=== PATIENT | female | born 1975 | race Caucasian/White ===

== ENCOUNTER 2017-07-08 21:22 | Emergency (ER) | payer OTHER ==
[~2017-07-08] VITALS: Ht 162.6 cm; Wt 113.4 kg
[~2017-07-08 21:22] MED LIST: BACTRIM DS TAB1 EACH PO; IBUPROFEN 800800 M1 PO; NOHOMEMEDICATIONS; NORCO 5-325 TA1 EACH PO; ROBAXIN500 MG PO; TRAMADOL 50 MG50 MG PO; ZOFRAN ODT4 MG PO
[2017-07-08] MEDS ORDERED: CARISOPRODOL 3350 MG PO (21:32)
[2017-07-08] MEDS ORDERED: XANAX 0.5 MG0.5 MG PO (21:32)
[2017-07-08 22:14] LABS: ABSOLUTE EOSINOPHILS 0.1 thou/uL (0.0-0.7); ABSOLUTE LYMPHOCYTES 1.9 thou/uL (0.8-5.3); ABSOLUTE MONOCYTES 0.4 thou/uL (0.0-1.2); ABSOLUTE NEUTROPHILS 3.2 thou/uL (1.6-8.1); BASOPHILS 0.8 %; EOSINOPHILS 2.5 %; HEMATOCRIT 32.1 % (37.0-47.0); HEMOGLOBIN 10.4 gm/dL (12.0-15.0); LYMPHOCYTES 33.5 %; MCH 26.3 pg (26.0-34.0); MCHC 32.3 g/dL (28.0-37.0); MCV 81.6 fL (80.0-100.0); MONOCYTES 6.9 %; MPV 7.1 fl. (7.2-11.1); NUCLEATED RBCS 0 /100WBC; PLATELET COUNT* 297 thou/uL (150-400); POLYS 56.3 %; RBC 3.94 mil/uL (4.20-5.00); RDW-CV 16.6 % (10.5-14.5); WBC 5.7 thou/uL (4.0-11.0)
[2017-07-08 22:21] LABS: URINE BLOOD 2+ (Negative); URINE CLARITY CLEAR; URINE COLOR YELLOW; URINE GLUCOSE-RANDOM NEGATIVE (Negative); URINE KETONES NEGATIVE (Negative); URINE LEUKOCYTES-REFLEX NEGATIVE (Negative); URINE NITRITE-REFLEX NEGATIVE (Negative); URINE PROTEIN NEGATIVE (Negative); URINE SPECIFIC GRAVITY >= 1.030 (1.005-1.030); URINE UROBILINOGEN 0.2 E.U./dl (0.2-1.0)
[2017-07-08 22:23] LABS: ICTOTEST (BILI CONFIRMATORY) Positive (Negative); URINE BILIRUBIN 1+ (Negative)
[2017-07-08 22:23] LABS: ANION GAP 5 mmol/L (7-16); BUN 16 mg/dL (7-18); CALCIUM 8.1 mg/dL (8.5-10.1); CHLORIDE 105 mmol/L (98-107); CO2 31 mmol/L (21-32); CREATININE 0.9 mg/dL (0.6-1.3); GLUCOSE 107 mg/dL (70-99); POTASSIUM 4.2 mmol/L (3.5-5.1); SODIUM 141 mmol/L (136-145)
[2017-07-08 22:32] LABS: ALBUMIN 2.8 g/dL (3.4-5.0); ALKALINE PHOSPHATASE 107 U/L (46-116); LIPASE 79 U/L (73-393); NT-PRO BRAIN NAT PEPTIDE 285 pg/mL (<300); SGOT 64 U/L (15-37); SGPT 47 U/L (30-65); TOTAL BILIRUBIN 0.1 mg/dL (<0.1-1.0); TOTAL PROTEIN 6.5 g/dL (6.4-8.2); TROPONIN-I LEVEL <0.06 ng/mL (<0.06)
[2017-07-08 22:36] LABS: AMP/METHAMP Negative (Negative); BARBITURATES Negative (Negative); BENZODIAZEPINES POSITIVE (Negative); COCAINE Negative (Negative); METHADONE Negative (Negative); OPIATES POSITIVE (Negative); PCP Negative (Negative); THC Negative (Negative)
[2017-07-09] MEDS ORDERED: PEPCID20 MG PO (00:06)
[2017-07-09] MEDS ORDERED: OMEPRAZOLE 20 M20 MG PO (00:06)
[2017-07-09 00:13] VITALS: BP 135/90
--- NOTE | 2017-07-09 11:49 | EKG ---
[place] [address] ELECTROCARDIOGRAM REPORT Name: DOMINGA MARTIN Room: [facility]#: [id number] Admission: 07/08/17 Attend Phys: Discharge: 07/09/17 Date of : 71 Report #: [id number] THIS REPORT FOR: //name// [facility] ED Test Date: 2017-07-08 Test Time: 22:02:15 Pat Name: DOMINGA MARTIN Department: Room: Gender: F Brand Sales Manager: MIRANDA Booker : 1975 Requested By: Shagufta Goss Order Number: [id number] MD: Carrington Hull Measurements Intervals [place] Rate: 92 P: 66 [place]: 166 QRS: 29 QRSD: 101 T: -7 QT: 365 QTc: 452 Interpretive Statements Sinus rhythm Left atrial enlargement Low voltage, precordial leads RSR' in V1 or V2, right VCD or RVH Borderline T abnormalities, anterior leads No previous ECG available for comparison Electronically Signed On 07-09-2017 11:49:47 DIRECTOR CASE MANAGEMENT by Carrington Hull [email or web address] <ELECTRONICALLY SIGNED> By: Carrington Hull MD, [facility] 07/09/17 1149 01 01 Carrington Hull MD, [facility] /EPI
== END 2017-07-09 00:13 | disposition home or self-care (01) ==
LOC: M.ERS 21:22
PROVIDERS: Physician Assistant
DX: R07.9 Chest pain, unspecified (principal); D64.9 Anemia, unspecified; Z98.890 Other specified postprocedural states; Z88.1 Allergy status to other antibiotic agents

== ENCOUNTER 2019-05-12 11:40 | Emergency (ER) | payer OTHER ==
[~2019-05-12] VITALS: Ht 162.6 cm; Wt 122.5 kg
[~2019-05-12 11:40] MED LIST changes: +CARISOPRODOL 3350 MG PO; +OMEPRAZOLE 20 M20 MG PO; +PEPCID20 MG PO; +XANAX 0.5 MG0.5 MG PO
[2019-05-12] MEDS ORDERED: OMEPRAZOLE 20 M20 M1 PO (11:53)
[2019-05-12 12:00] LABS: ABSOLUTE EOSINOPHILS 0.1 thou/uL (0.0-0.7); ABSOLUTE LYMPHOCYTES 2.5 thou/uL (0.8-5.3); ABSOLUTE MONOCYTES 0.5 thou/uL (0.0-1.2); BASOPHILS 0.7 %; EOSINOPHILS 1.9 %; HEMATOCRIT 34.2 % (37.0-47.0); HEMOGLOBIN 11.1 gm/dL (12.0-15.0); LYMPHOCYTES 34.4 %; MCH 25.6 pg (26.0-34.0); MCHC 32.4 g/dL (28.0-37.0); MCV 78.9 fL (80.0-100.0); MONOCYTES 7.3 %; MPV 7.3 fl. (7.2-11.1); NUCLEATED RBCS 0 /100WBC; PLATELET COUNT* 324 thou/uL (150-400); POLYS 55.7 %; RBC 4.33 mil/uL (4.20-5.00); RDW-CV 16.7 % (10.5-14.5); WBC 7.1 thou/uL (4.0-11.0)
[2019-05-12 12:15] LABS: CALCIUM 8.2 mg/dL (8.5-10.1); POTASSIUM 3.8 mmol/L (3.5-5.1)
[2019-05-12 12:17] LABS: INR 0.9; PROTIME 9.5 Seconds (9.20-11.50)
[2019-05-12 12:29] LABS: ALBUMIN 2.9 g/dL (3.4-5.0); CK-MB MASS 0.9 ng/mL (<0.5-3.6); MAGNESIUM 1.8 mg/dL (1.8-2.4); TOTAL BILIRUBIN 0.2 mg/dL (<0.1-1.0); TOTAL PROTEIN 6.9 g/dL (6.4-8.2)
[2019-05-12] MEDS ORDERED: FLEXERIL PO (13:11)
[2019-05-12] MEDS ORDERED: NORCO 5-325 TA1 EAC1 PO (13:11)
[2019-05-12 13:24] VITALS: BP 125/80
--- NOTE | 2019-05-13 10:52 | EKG ---
[place] [address] ELECTROCARDIOGRAM REPORT Name: DOMINGA MARTIN [id number] Admission: 05/12/19 Attend Phys: Discharge: 05/12/19 Date of : 71 Report #: [id number] THIS REPORT FOR: //name// [facility] ED Test Date: 2019-05-12 Test Time: 11:48:00 Pat Name: DOMINGA MARTIN Department: Room: Gender: F Access Specialist: ELIZABETH : 1975 Requested By: Keagan Cardoza Order Number: [id number] MD: Ananth Simon Measurements Intervals [place] Rate: 101 P: 69 [place]: 145 QRS: 73 QRSD: 93 T: -3 QT: 336 QTc: 436 Interpretive Statements Sinus tachycardia Compared to ECG 07/08/2017 22:02:15 Sinus rhythm no longer present Atrial abnormality no longer present Electronically Signed On 05-13-2019 10:52:10 [employer]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
== END 2019-05-12 13:10 | disposition home or self-care (01) ==
LOC: M.ERS 11:40
PROVIDERS: Family Medicine
DX: M25.512 Pain in left shoulder (principal); Z98.84 Bariatric surgery status; Z98.890 Other specified postprocedural states; Z90.49 Acquired absence of other specified parts of digestive tract; Z88.1 Allergy status to other antibiotic agents